=== PATIENT | female | born 1955 | race Caucasian/White ===

== ENCOUNTER → 2018-10-22 | Outpatient (CLI) | payer OTHER | END | disposition home or self-care (01) | LOC: LAB SHORT 13:27 → PLD 13:27 | DX: Z01.812 Encounter for preprocedural laboratory examination (principal); D48.5 Neoplasm of uncertain behavior of skin | CPT/HCPCS: 88305; 88342 ==

== ENCOUNTER → 2019-04-09 | Outpatient (CLI) | payer OTHER ==
[2019-04-13 14:06] LABS: HPV 16 Negative (Negative); HPV 18 Negative (Negative); HPV OTHER HR TYPES Negative (Negative)
== END | disposition home or self-care (01) ==
LOC: LAB SHORT 12:00 → LAB 12:00 → LAB FUT 04-08 08:55
PROVIDERS: Nurse Practitioner Family
DX: Z01.419 Encounter for gynecological examination (general) (routine) without abnormal findings (principal)
CPT/HCPCS: 87624; G0123

== ENCOUNTER → 2025-03-16 | Outpatient (CLI) | payer OTHER | LOC: LAB 13:23 → LAB SHORT 13:23 | DX: D22.4 Melanocytic nevi of scalp and neck (principal) | CPT/HCPCS: 88305 ==